=== PATIENT | male | born 1985 | race Caucasian/White ===

== ENCOUNTER 2025-01-12 05:43 | Emergency (ER) | payer BC ==
[2025-01-12] MEDS: Morphine 4 MG/ML Syringe IVPUSH ONE ×2 (06:03→07:55)
[2025-01-12] MEDS: Ondansetron 4 MG/2 ML SDV IVPUSH ONE (06:03)
[2025-01-12 06:12] LABS: BASOPHILS PERCENT AUTO 0.4 % (0.0-1.0); EOSINOPHILS PERCENT AUTO 2.7 % (1.0-3.0); HEMATOCRIT 47.2 % (40.0-54.0); LYMPHOCYTES PERCENT AUTO 43.5 % (20.5-50.1); MEAN CORPUSCULAR HEMOGLOBIN 33.2 pg (27.0-34.0); MEAN CORPUSCULAR VOLUME 92.2 fL (80-100); MONOCYTES PERCENT AUTO 6.1 % (2-8); NEUTROPHILS PERCENT AUTO 47.3 % (42.2-75.2); PLATELET COUNT,PLT 233 10^3/uL (150-450); RED BLOOD CELL COUNT 5.12 10^6/uL (4.6-6.2)
[2025-01-12 06:33] LABS: A/G RATIO 1.2; ALBUMIN 4.4 g/dL (3.4-5.0); ANION GAP 17.1 mEq/L (7-13); BILIRUBIN TOTAL 0.5 mg/dL (0.2-1.0); BUN/CREATININE RATIO 15.8 (No establ ref range); CALCIUM 9.3 mg/dL (8.5-10.1); CREATININE 1.01 mg/dL (0.70-1.30); EST CRCL DRUG DOSING (CG) 83.36 mL/min; POTASSIUM,K 4.1 mmol/L (3.5-5.1)
[2025-01-12 06:36] LABS: LACTIC ACID 1.7 mmol/L (0.4-2.0)
[2025-01-12 07:12] LABS: APPEARANCE,URINE CLEAR (CLEAR); BILIRUBIN,URINE NEGATIVE (NEGATIVE); GLUCOSE,URINE NEGATIVE (NEGATIVE); KETONES,URINE NEGATIVE (NEGATIVE); LEUKOCYTE ESTERASE,URINE NEGATIVE (NEGATIVE); NITRITE,URINE NEGATIVE (NEGATIVE); OCCULT BLOOD,URINE NEGATIVE (NEGATIVE); PROTEIN,URINE NEGATIVE (NEGATIVE); UROBILINOGEN,URINE 0.2 mg/dL (0.2-1.0)
[2025-01-12 07:13] LABS: COLOR,URINE LIGHT YELLOW (YELLOW)
[2025-01-12] MEDS: cefTRIAXone 500 MG, Lidocaine 1% 1 ML IM ONE (07:54)
[2025-01-12] MEDS: Lidocaine 1% 5 ML VIAL ONE (07:55)
[2025-01-12 08:03] VITALS: BP 115/79; PULSE 89
== END 2025-01-12 08:07 | disposition home or self-care (01) ==
LOC: DL.ED 05:43 → MERGE 05:43 → DL.ED 08:07
DX: N45.1 Epididymitis (principal); F17.210 Nicotine dependence, cigarettes, uncomplicated; Z88.1 Allergy status to other antibiotic agents
CPT/HCPCS: 36415; 76870; 80053; 81003; 83605; 85025; 96372; 96374; 96375; 96376; 99284; J0696; J2003; J2270; J2405